=== PATIENT | female | born 1940 | race Caucasian/White ===

== ENCOUNTER → 2017-08-01 | Outpatient (CLI) | payer OTHER ==
[2017-08-01 17:37] LABS: ANION GAP 11.8 mmol/L (8-16); BLOOD UREA NITROGEN 14 mg/dL (7-26); BUN/CREATININE RATIO 21 (6-25); CALCIUM 8.2 mg/dL (8.4-10.2); CARBON DIOXIDE 24 mmol/L (22-29); CHLORIDE 104 mmol/L (98-107); CREATININE, SERUM 0.67 mg/dL (0.57-1.11); EST GLOMERULAR FILTRATION RATE > 60 ML/MIN (60-); GLUCOSE 113 mg/dL (74-118); POTASSIUM 3.8 mmol/L (3.5-5.1); SODIUM 136 mmol/L (136-145)
[2017-08-01 17:38] LABS: BASOPHILS % 0.3 % (0.0-1.0); EOSINOPHILS # (AUTO) 0.3 (0.0-0.4); EOSINOPHILS % 3.9 % (0.0-6.0); LYMPHOCYTES # (AUTO) 0.5 (1.0-3.2); LYMPHOCYTES % 7.3 % (18.0-39.1); MEAN CORPUSCULAR HEMOGLOBIN 31.2 pg (28-32); MEAN CORPUSCULAR HGB CONC 33.3 g/dL (31-35); MEAN CORPUSCULAR VOLUME 93.5 fL (81-99); MONOCYTES # (AUTO) 0.4 (0.2-0.8); MONOCYTES % 5.4 % (4.4-11.3); NEUTROPHILS # (AUTO) 5.9 (2.1-6.9); NEUTROPHILS % 81.6 % (38.7-80.0); PLATELET COUNT 478 x10e3/uL (140-360); RED BLOOD COUNT 3.21 x10e6/uL (3.6-5.1); RED CELL DISTRIBUTION WIDTH 13.8 % (11.7-14.4)
== END ==
LOC: NPA 11:30
PROVIDERS: ATTEND Internal Medicine
DX: Z02.89 Encounter for other administrative examinations (principal)
CPT/HCPCS: 36415; 80048; 85025

== ENCOUNTER → 2017-08-04 | Outpatient (CLI) | payer OTHER ==
[2017-08-04 16:37] LABS: BASOPHILS % 0.6 % (0.0-1.0); EOSINOPHILS # (AUTO) 0.1 (0.0-0.4); EOSINOPHILS % 1.8 % (0.0-6.0); HEMATOCRIT 34.3 % (34.2-44.1); HEMOGLOBIN 11.2 g/dL (12.0-16.0); LYMPHOCYTES % 29.5 % (18.0-39.1); MEAN CORPUSCULAR HEMOGLOBIN 30.9 pg (28-32); MEAN CORPUSCULAR HGB CONC 32.7 g/dL (31-35); MEAN CORPUSCULAR VOLUME 94.5 fL (81-99); MONOCYTES # (AUTO) 0.3 (0.2-0.8); MONOCYTES % 4.4 % (4.4-11.3); NEUTROPHILS # (AUTO) 4.2 (2.1-6.9); NEUTROPHILS % 62.6 % (38.7-80.0); PLATELET COUNT 728 x10e3/uL (140-360); RED BLOOD COUNT 3.63 x10e6/uL (3.6-5.1); RED CELL DISTRIBUTION WIDTH 14.1 % (11.7-14.4)
[2017-08-04 16:38] LABS: ANION GAP 14.7 mmol/L (8-16); BLOOD UREA NITROGEN 10 mg/dL (7-26); BUN/CREATININE RATIO 14 (6-25); CARBON DIOXIDE 23 mmol/L (22-29); CHLORIDE 104 mmol/L (98-107); CREATININE, SERUM 0.72 mg/dL (0.57-1.11); EST GLOMERULAR FILTRATION RATE > 60 ML/MIN (60-); GLUCOSE 121 mg/dL (74-118); POTASSIUM 3.7 mmol/L (3.5-5.1); SODIUM 138 mmol/L (136-145)
== END ==
LOC: NPA 15:00
PROVIDERS: ATTEND Internal Medicine
DX: Z02.89 Encounter for other administrative examinations (principal)
CPT/HCPCS: 36415; 80048; 85025

== ENCOUNTER 2019-03-28 16:26 | Inpatient (IN) | payer MEDICARE, OTHER ==
[~2019-03-28] VITALS: Ht 160 cm; Wt 75.5 kg
[2019-03-28] MEDS ORDERED: MORPHINE SULFATE 5 MG/ML VIAL IV ONE (16:45)
[2019-03-28] MEDS ORDERED: MORPHINE SULFATE 2 MG/ML SYR 1ML IV ONE (16:45)
[2019-03-28] MEDS ORDERED: ONDANSETRON HCL INJ 2MG/ML 2ML 2 MG/ML VIAL IV PRN ×2 (18:30→23:00)
[2019-03-28] MEDS: SODIUM CHLORIDE 0.9% 1000ML 1,000 ML IV SCH (18:42)
[2019-03-28] MEDS: MORPHINE SULFATE INJ 4 MG/ML INJ 1ML IV PRN (18:42)
--- NOTE | 2019-03-28 18:48 | Diagnostic Imaging Report ---
EXAMINATION: CHEST SINGLE (NOT PORTABLE) INDICATION: Fall. ^rx ^[id number] ^[id number] COMPARISON: None FINDINGS: TUBES and LINES: None. LUNGS: Lungs are well inflated. Lungs are clear. There is no evidence of pneumonia or pulmonary edema. PLEURA: No pleural effusion or pneumothorax. HEART AND MEDIASTINUM: The cardiomediastinal silhouette is unremarkable. There are atherosclerotic calcifications within the aorta. Moderate size hiatal hernia. BONES AND SOFT TISSUES: No acute osseous lesion. Soft tissues are unremarkable. UPPER ABDOMEN: No free air under the diaphragm. IMPRESSION: Moderate size hiatal hernia. Signed by: Dr. Umer Kaiser M.D. on 03/28/2019 6:45 PM
--- NOTE | 2019-03-28 18:52 | Diagnostic Imaging Report ---
Left femur 4 views and left hip with pelvis AP 4 HISTORY: Pain COMPARISON: None FINDINGS: Acute fracture of the femoral neck with mild superior displacement of the distal fracture fragment/femur. Status post right hip arthroplasty with prosthesis in adequate position. Extensive vascular calcifications. Degenerative changes of the lower lumbar spine and bilateral SI joints. Status post ORIF of a remote fracture of the distal femoral metadiaphysis with plate and screw construct which appear intact. Partially visualized total left hip arthroplasty. IMPRESSION: Acute fracture of the femoral neck with mild superior displacement of the distal fracture fragment/femur. Signed by: Dr. Umer Kaiser M.D. on 03/28/2019 6:49 PM
[2019-03-28 20:02] LABS: BASOPHILS # (AUTO) 0.1 (0.0-0.1); BASOPHILS % 0.3 % (0.0-1.0); EOSINOPHILS % 0.1 % (0.0-6.0); HEMATOCRIT 41.3 % (34.2-44.1); HEMOGLOBIN 14.1 g/dL (12.0-16.0); LYMPHOCYTES # (AUTO) 2.4 (1.0-3.2); LYMPHOCYTES % 12.7 % (18.0-39.1); MEAN CORPUSCULAR HEMOGLOBIN 30.8 pg (28-32); MEAN CORPUSCULAR HGB CONC 34.1 g/dL (31-35); MEAN CORPUSCULAR VOLUME 90.2 fL (81-99); MONOCYTES # (AUTO) 0.7 (0.2-0.8); MONOCYTES % 3.9 % (4.4-11.3); NEUTROPHILS # (AUTO) 15.3 (2.1-6.9); NEUTROPHILS % 82.5 % (38.7-80.0); PLATELET COUNT 353 x10e3/uL (140-360); RED BLOOD COUNT 4.58 x10e6/uL (3.6-5.1)
[2019-03-28 20:05] LABS: INR 0.92; PROTHROMBIN TIME 12.8 seconds (11.9-14.5)
[2019-03-28 20:15] LABS: ALANINE AMINOTRANSFERASE 18 IU/L (0-55); ALBUMIN 3.8 g/dL (3.5-5.0); ALBUMIN/GLOBULIN RATIO 1.3 (0.8-2.0); ALKALINE PHOSPHATASE 108 IU/L (40-150); ANION GAP 14.1 mmol/L (8-16); BLOOD UREA NITROGEN 16 mg/dL (7-26); BUN/CREATININE RATIO 17 (6-25); CALCIUM 9.4 mg/dL (8.4-10.2); CARBON DIOXIDE 22 mmol/L (22-29); CHLORIDE 106 mmol/L (98-107); CREATINE KINASE 125 IU/L (29-168); CREATININE, SERUM 0.93 mg/dL (0.57-1.11); EST GLOMERULAR FILTRATION RATE 58 ML/MIN (60-); GLUCOSE 115 mg/dL (74-118); POTASSIUM 4.1 mmol/L (3.5-5.1); SODIUM 138 mmol/L (136-145)
[2019-03-28] MEDS ORDERED: CEFTRIAXONE SOD 1 GM/NS 50 ML 50 ML IV ONE (20:30)
[2019-03-28 21:04] LABS: BILIRUBIN,URINE NEGATIVE (NEGATIVE); CLARITY,URINE CLEAR (CLEAR); COLOR,URINE YELLOW (YELLOW); KETONES,URINE NEGATIVE (NEGATIVE); LEUKOCYTE ESTERASE ,URINE NEGATIVE (NEGATIVE); NITRITE,URINE NEGATIVE (NEGATIVE); PROTEIN,URINE DIPSTICK NEGATIVE (NEGATIVE); URINE UROBILINOGEN 0.2 mg/dL (0.2 - 1)
[2019-03-28 21:16] LABS: EPITHELIAL CELLS,URINE RARE /LPF
[2019-03-28] MEDS ORDERED: HYDROCODONE/APAP 5MG-325MG TAB PO PRN (23:00)
[2019-03-28] MEDS ORDERED: MELATONIN 5 MG TABLET PO PRN (23:00)
[2019-03-28] MEDS ORDERED: ACETAMINOPHEN 325 MG TAB PO PRN (23:00)
--- NOTE | 2019-03-28 23:34 | NUR ---
PT ARRIVED BY STRETCHER TO ROOM 103. PT IS AAOX3, RR EVEN AND NON-LABORED, O2 BY NC AT 2L. PT TRANSFERRED BY SLIDE BOARD TO HOSPITAL BED. ORIENTED PT TO HOSPITAL BED, CALL LIGHT, PHONE, AND BED CONTROLS. LEFT PT LAYING SEMI FOWLERS IN BED, BED IN LOW LOCKED POSITION, SIDE RAILS UPX2, CALL LIGHT AND PHONE WITHIN REACH.
[2019-03-29] VITALS (9 sets, daily range): BP systolic 117–184; BP diastolic 60–84
[2019-03-29] MEDS: MORPHINE SULFATE INJ 4 MG/ML INJ 1ML IV PRN ×2 (00:43→08:46)
--- NOTE | 2019-03-29 00:45 | NUR ---
AFTER ADMINISTRATION OF MORPHINE, PT LOG ROLLED TO REMOVE SHEETS AND BEDDING FROM UNDER PATIENT. SLIDER WITH CHUCKS INSERTED UNDER PATIENT. LEFT PT LAYING SEMI FOWLERS IN BED, BED IN LOW LOCKED POSITION,SIDE RAILS UPX2, CALL LIGHT AND PHONE WITHIN REACH.
[2019-03-29] MEDS ORDERED: ADVIL200 M1 PO (03:13)
[2019-03-29] MEDS ORDERED: IRBESARTAN150 MG PO (03:13)
[2019-03-29] MEDS ORDERED: ATORVASTATIN CA20 MG PO (03:13)
[2019-03-29] MEDS ORDERED: BENADRYL25 M1 PO (03:13)
[2019-03-29] MEDS ORDERED: FLUOXETINE HCL20 MG PO (03:13)
[2019-03-29] MEDS ORDERED: MELATONIN3 MG PO (03:13)
[2019-03-29] MEDS ORDERED: LORATADINE10 MG PO (03:13)
[2019-03-29] MEDS: SODIUM CHLORIDE 0.9% 1000ML 1,000 ML IV SCH ×2 (03:38→17:20)
[2019-03-29 05:40] LABS: BASOPHILS # (AUTO) 0.1 (0.0-0.1); BASOPHILS % 0.5 % (0.0-1.0); EOSINOPHILS # (AUTO) 0.3 (0.0-0.4); EOSINOPHILS % 2.3 % (0.0-6.0); HEMATOCRIT 38.9 % (34.2-44.1); HEMOGLOBIN 12.8 g/dL (12.0-16.0); LYMPHOCYTES # (AUTO) 2.4 (1.0-3.2); LYMPHOCYTES % 19.2 % (18.0-39.1); MEAN CORPUSCULAR HEMOGLOBIN 30.3 pg (28-32); MEAN CORPUSCULAR HGB CONC 32.9 g/dL (31-35); MEAN CORPUSCULAR VOLUME 92.2 fL (81-99); MONOCYTES # (AUTO) 0.7 (0.2-0.8); MONOCYTES % 5.3 % (4.4-11.3); NEUTROPHILS # (AUTO) 8.9 (2.1-6.9); NEUTROPHILS % 72.4 % (38.7-80.0); PLATELET COUNT 317 x10e3/uL (140-360); RED BLOOD COUNT 4.22 x10e6/uL (3.6-5.1); RED CELL DISTRIBUTION WIDTH 13.1 % (11.7-14.4)
[2019-03-29 06:03] LABS: BLOOD UREA NITROGEN 15 mg/dL (7-26); BUN/CREATININE RATIO 17 (6-25); CALCIUM 8.5 mg/dL (8.4-10.2); CARBON DIOXIDE 24 mmol/L (22-29); CHLORIDE 108 mmol/L (98-107); CREATININE, SERUM 0.88 mg/dL (0.57-1.11); EST GLOMERULAR FILTRATION RATE > 60 ML/MIN (60-); GLUCOSE 108 mg/dL (74-118); SODIUM 137 mmol/L (136-145)
--- NOTE | 2019-03-29 06:13 | NUR ---
PAGED PLACED FOR MD LIMA CONCERNING CONSULTATION. WAITING FOR CALLBACK.
--- NOTE | 2019-03-29 06:16 | NUR ---
CALL PLACED FOR CONSULTATION TO [facility]. CALL WAS NOT ANSWERED, UNABLE TO LEAVE MESSAGE, WILL ATTEMPT LATER.
[2019-03-29] MEDS ORDERED: CEFAZOLIN SOD 1 GM VIAL IV ONE (08:15)
[2019-03-29] MEDS ORDERED: CEFAZOLIN SOD 2 GM/D5W 50ML 50 ML IV ONE (08:30)
[2019-03-29] MEDS ORDERED: MELATONIN 3 MG TAB PO PRN (08:30)
[2019-03-29] MEDS ORDERED: VANCOMYCIN HCL 1,000 MG ONE (11:02)
[2019-03-29] MEDS ORDERED: SODIUM CHLORIDE 0.9% 500ML 500 ML ONE (11:03)
[2019-03-29] MEDS ORDERED: BACITRACIN 50,000 UNIT VIAL ONE (11:03)
[2019-03-29] MEDS ORDERED: TRANEXAMIC ACID 1,000 MG/10 ML ML ONE (11:03)
--- NOTE | 2019-03-29 12:20 | NUR ---
Taken for procedure. NO s/s of acute distress noted.
[2019-03-29] MEDS ORDERED: ROPIVACAINE 246.25 MG, EPINEPHRINE HCL 1:1000 1ML 0.5 MG, CLONIDINE HCL 0.08 MG, KETORO... INJ ONE ×5 (12:30)
[2019-03-29] MEDS ORDERED: ONDANSETRON HCL 4 MG ORAL DISINTEGRATING TAB PO PRN (13:15)
--- NOTE | 2019-03-29 13:20 | History and Physical ---
CHIEF COMPLAINT: Mechanical fall with left femur fracture. HISTORY OF PRESENT ILLNESS: A 78-year-old female, who had a history of right hip fracture, status post repair several years ago, bilateral knee replacements, who presents to the emergency room after having a mechanical fall that occurred at home, found to have a left femur fracture. The patient reports that she was at home. She tried to grab something and she mechanically tripped and landed on her left femur/hip, and began to complain of severe pain. The patient was then brought in by EMS for further evaluation and management, and confirmed a left femur fracture. The patient was admitted for further evaluation and management. Orthopedics has been consulted. She is scheduled for surgery later today. The patient was seen and evaluated at bedside on the medical floor. She is currently doing well with no other complaints. She denies any history of cardiac disease. No reports of any chest pain or any palpitations. She has never seen a change management lead before in the past. She takes very minimal medications at home. No reports or any history of heart failure or any heart disease. No reports of any recent chest pain. REVIEW OF SYSTEMS: Pertinent positives: Mechanical fall with left hip pain, found to have a left femur fracture. Pertinent negatives: Denies any chest pain, palpitation, nausea, vomiting, diarrhea, dysuria, hematuria, frequency, urgency, lightheadedness, dizziness, abdominal pain, headaches, shortness of breath, cough, congestion, fever, or any other complaints. The rest of 14-point review of systems are reviewed with the patient and are negative. ALLERGIES: NO KNOWN DRUG ALLERGIES. HOME MEDICATIONS: 1. Benadryl 25 mg at bedtime for sleep. 2. Loratadine 10 mg daily. 3. Ibuprofen 200 mg every 6 hours as needed for pain. 4. Lipitor 20 mg daily. 5. Fluoxetine 20 mg daily. 6. Irbesartan 150 mg p.o. daily. 7. Melatonin p.r.n. for sleep. PAST MEDICAL HISTORY: Hypertension, depression, hyperlipidemia. PAST SURGICAL HISTORY: She had a right hip surgery in the past. She had bilateral knee replacements in the past. FAMILY HISTORY: Hypertension and diabetes. SOCIAL HISTORY: No drugs. No alcohol. Does not smoke. Good social support. She has children. PHYSICAL EXAMINATION: VITAL SIGNS: Temperature is 98.6, pulse 77, respiratory rate is 18, blood pressure 161/74, and pulse ox 96% on room air. GENERAL: Not in acute distress. Alert and oriented x3. Cooperative on examination. HEENT: Head; normocephalic, atraumatic. Eyes; pupils are equal, round, and reactive to light bilaterally. Extraocular movements intact bilaterally. Throat; no evidence of erythema or exudates in the posterior pharynx. Has poor dentition. NECK: Supple. Good range of motion. PULMONARY: Clear to auscultation bilaterally. No wheezing, no rales, no rhonchi, no crackles appreciated. CARDIOVASCULAR: Positive S1 and S2. No murmurs, rubs, or gallops appreciated. ABDOMEN: Soft, nondistended, and nontender to palpation. Bowel sounds present. MUSCULOSKELETAL: Strength is 5/5 throughout. No evidence of any muscle deficits on examination. No weakness appreciated. NEUROLOGIC: Cranial nerve II through XII grossly intact. No evidence of any neurological deficits on exam. SKIN: Intact. Warm to touch. Good cap refill. PSYCHIATRIC: Normal affect and mood. EXTREMITIES: No edema. Good range of motion throughout. LABORATORY FINDINGS: Show white count 12.3, hemoglobin 12.8, hematocrit 38.9, platelets of 317. Coagulation; PT 12, INR 0.92. Chemistry; sodium 137, potassium 4, chloride 108, bicarb 24, anion gap of 9, BUN 15, creatinine 0.88, glucose is 108, calcium is 8.5. LFTs were normal. Troponins were negative. CK is 125, albumin is 3.8. Urinalysis was negative. MICROBIOLOGY: Urine cultures, no growth. IMAGING STUDIES: Hip x-ray shows acute fracture of the femoral neck with superior displacement of the distal fracture fragment in the left femur. Femur x-ray, acute fracture of the left femoral neck. Chest x-ray moderate-sized hiatal hernia. Otherwise, no other findings. IMPRESSION: 1. Mechanical fall, now with left femur fracture. 2. Hypertension. 3. History of depression. 4. Hyperlipidemia. PLAN: At this time, Orthopedics is consulted. She is n.p.o. and she is scheduled to have pinning of her left femur later today. She denies any history of cardiac disease. Never seen a change management lead. No reports of any chest pain or any palpitations. Denies any history of arrhythmias in the past. Continue with pain control for now. She will get PT and OT post surgery. Physical medicine rehab has been consulted for inpatient rehabilitation. We are going to resume same home medications for now. Get a.m. labs. Start on anticoagulation after surgery, as she is scheduled for surgery later today. We will go ahead and put her on SCDs for now. Otherwise, we will continue with same plan of care and monitor very closely. MD JASWANT Douglas/JULIANA /[id number]
[2019-03-29] MEDS ORDERED: ACETAMINOPHEN 1000 MG/100 ML 100 ML IV ONE (13:56)
[2019-03-29] MEDS ORDERED: ONDANSETRON HCL INJ 2MG/ML 2ML 2 MG/ML VIAL ONE (14:14)
[2019-03-29] MEDS ORDERED: ROCURONIUM BROMIDE 10 MG/ML 5ML VIAL ONE (14:14)
[2019-03-29] MEDS ORDERED: DEXAMETHASONE SOD PHOS INJ 4 MG/ML VIAL ONE (14:14)
[2019-03-29] MEDS ORDERED: PROPOFOL IV EMULSION 10 MG/ML 20 ML VIAL ONE (14:14)
[2019-03-29] MEDS ORDERED: ACETAMINOPHEN 1000 MG/100 ML IV ONE (14:14)
[2019-03-29] MEDS ORDERED: SEVOFLURANE INHAL SOLN 250 ML PEN BTL ONE (14:14)
[2019-03-29] MEDS ORDERED: LIDOCAINE HCL 2% LOCAL INJ 5 ML SDV VIAL INJ ONE (14:14)
[2019-03-29] MEDS ORDERED: DIPHENHYDRAMINE HCL INJ 50 MG/ML VIAL IM/IV PRN (14:30)
[2019-03-29] MEDS ORDERED: PROMETHAZINE HCL (IM) 25 MG/ML VIAL IM PRN (14:30)
[2019-03-29] MEDS ORDERED: ONDANSETRON HCL INJ 2MG/ML 2ML 2 MG/ML VIAL IV PRN (14:30)
[2019-03-29] MEDS ORDERED: ACETAMINOPHEN 650 MG SUPP PR PRN (14:30)
--- NOTE | 2019-03-29 14:46 | Consultation ---
DATE OF CONSULTATION: Pulmonary Critical Care Consultation HISTORY OF PRESENT ILLNESS: The patient is a 78-year-old woman. She previously followed in my office for insomnia and dyspnea. She is currently taking melatonin at night. She is not having any further cough or dyspnea. Apparently, she slipped and fell yesterday. She suffered a fracture to the left hip and came to the ER. She was evaluated by Orthopedics and it is felt to need a total hip replacement on the left side. PAST SURGICAL HISTORY: 1. Status post right total hip. 2. Status post knee surgery. PAST MEDICAL HISTORY: 1. Hypertension. 2. Allergies. 3. Insomnia. 4. Osteoarthritis. SOCIAL HISTORY: The patient is not smoking at this time. She is not an active drinker. FAMILY HISTORY: Family history is noncontributory. ALLERGIES: NO KNOWN DRUG ALLERGIES. REVIEW OF SYSTEMS: The patient is afebrile. She has no headache. She is not complaining of chest pain. She has no wheezing or dyspnea. She has no abdominal pain. She does have some leg pain on the left side. She has no neurological complaints. PHYSICAL EXAMINATION: VITAL SIGNS: The blood pressure is 161/74 and the saturation is 96% on 2 L. HEENT: Shows no facial swelling or erythema. NECK: Shows no submandibular, cervical, or supraclavicular adenopathy. CARDIAC: Reveals regular rate and rhythm with normal S1 and S2. There are no murmurs or rubs. LUNGS: Auscultation of lungs reveals prolonged expiratory phase bilaterally. There is no wheezing. ABDOMEN: Soft and nontender. There is no rebound or guarding. EXTREMITIES: Examination of extremities shows some shortening and external rotation of the left leg. There are no focal neurological abnormalities. LABORATORY DATA: The sodium is 137 and the BUN to creatinine ratio is 15 to 0.88. The white blood cell count is 12.3 and hemoglobin is 12.8. The platelet count is 317. RADIOGRAPHIC DATA: There is a moderate size hiatal hernia. There is no acute disease in the lungs. IMPRESSION: 1. Remote history of dyspnea that has resolved. 2. Insomnia. 3. Hip fracture. 4. Hypertension. PLAN: 1. The patient will receive melatonin at night and Ambien p.r.n. if needed. 2. The patient is scheduled for surgery today. 3. Physical Medicine Rehabilitation has been consulted. 4. Continue current antihypertensive regimen. MD MARISSA Robertson/JULIANA /[id number]
--- NOTE | 2019-03-29 15:49 | Diagnostic Imaging Report ---
Pelvis, 2 views. History: Post op. Findings: Status post total left hip arthroplasty with prosthetic components in anatomic alignment. Overlying post-surgical air and skin gila are present. Prior right hip replacement is also noted. IMPRESSION: Status post left hip replacement in anatomic position. Signed by: Dequan Jacinto on 03/29/2019 3:46 PM
--- NOTE | 2019-03-29 16:06 | NUR ---
Back from procedure. No s/s of acute distress noted. Aquacel dressing to left hip clean, dry, and intact.
[2019-03-29] MEDS ORDERED: CELECOXIB 100 MG CAP PO SCH (17:00)
[2019-03-29] MEDS: ASPIRIN 325 MG TAB PO SCH (17:20)
[2019-03-29] MEDS: ACETAMINOPHEN 1000 MG/100 ML IV SCH (17:20)
[2019-03-29] MEDS: IRBESARTAN 150 MG TAB PO SCH (17:20)
[2019-03-29] MEDS: FLUOXETINE HCL 20 MG CAP PO SCH (17:20)
[2019-03-29] MEDS: CELECOXIB 200 MG CAP PO SCH (17:20)
--- NOTE | 2019-03-29 18:57 | NUR ---
WALKING ROUNDS PERFORMED, RECEIVED PT LAYING SEMI FOWLERS IN BED, AAOX3, RR EVEN AND NON-LABORED, ON ROOM AIR. NO S/SX OF DISTRESS NOTED. DRESSING TO (L) HIP NOTED TO BE CDI. LEFT PT LAYING SEMI FOWLERS IN BED, BED IN LOW LOCKED POSITION, SIDE RAILS UPX2, CALL LIGHT AND PHONE WITHIN REACH.
--- NOTE | 2019-03-29 19:17 | NUR ---
Report given to oncoming nurse of patient's status. No s/s of acute distress noted. Right AC IV infiltrated. Arm elevated. Started Left FA 20G. Left hip dressing clean, dry, and intact. Side rails upx2, call light within reach.
[2019-03-29] MEDS ORDERED: FENTANYL CITRATE/PF 100MCG/2 ML INJ ONE (19:33)
[2019-03-29] MEDS ORDERED: MIDAZOLAM HCL 2 MG/2 ML VIAL ONE (19:33)
[2019-03-29] MEDS ORDERED: MORPHINE SULFATE INJ 10 MG/ML ONE (19:33)
[2019-03-29] MEDS ORDERED: ZOLPIDEM TARTRATE 5 MG TAB PO PRN (21:00)
--- NOTE | 2019-03-29 21:27 | Operative Report ---
DATE OF PROCEDURE: 03/29/2019 SURGEON: Marty Watson MD REGRADER: Rohit Marsh, certified PA. PREOPERATIVE DIAGNOSIS: Left femoral neck fracture. POSTOPERATIVE DIAGNOSIS: Left femoral neck fracture. PROCEDURE: Left total hip arthroplasty. INDICATIONS: The patient is a 78-year-old lady, who was independently ambulatory. She fell and sustained a femoral neck fracture. The findings and options have been discussed. We plan on performing a left total hip replacement. The risks and benefits were explained. She states she understands and wishes to proceed. DESCRIPTION OF PROCEDURE: The patient was brought to the operating room and placed under general anesthetic. She was positioned in the right lateral decubitus position. Her left hip was prepped and draped in a sterile manner. A preoperative time-out was performed. A posterior approach was made to the left hip. Hemostasis was obtained with electrocautery. The abductor insertion on the greater trochanter was noted to be attenuated and partially incompetent. The posterior capsule was released. The hip was brought up into flexion and internal rotation. An oscillating saw was used to resect the remainder of the femoral neck. Acetabular retractors were placed. The femoral head was removed. The labral remnants were removed. The socket was sequentially reamed up to 51 mm. This accomplished bleeding hemispherical cancellous bone. A Louis [employer]omet 52 mm outer diameter OsseoTi socket was impacted into place. Fixation was augmented with two 25 mm cancellous screws placed into the ilium. A highly cross-linked polyethylene liner with a 36 mm inner diameter was then seated into place. Care was taken to make sure that there was no evidence of soft tissue interposition. The hip was thoroughly irrigated on multiple occasions during this portion of the case. Attention was directed towards the proximal femur. A box cutting osteotome was used to establish entry to the femoral canal. The Taperloc broaches were impacted. A size 15 stem was necessary to have good canal fill and rotational stability. Trial reductions were performed. A standard 36 mm head provided appropriate soft tissue balancing, scientologist of limb length and stability to a full arc of motion. The trial implants were removed. The prosthesis was seated and a 36 mm ceramic head with a standard trunnion was impacted onto the stem. A final reduction was performed. The hip was further irrigated. A 100 mL premixed pericapsular YADI injection was placed into the surrounding soft tissue. The posterior capsule was repaired with #2 Ethibond. A 500 mg of vancomycin powder were sprinkled into the deep aspect of the wound. The gluteal fascia was closed with interrupted #2 Ethibond. The skin was closed with subcuticular Vicryl and gila. A sterile Aquacel bandage was applied. The patient was returned to the supine position, extubated, and transported to the recovery room. Estimated blood loss was 150 mL and all needle and sponge counts were correct. Marty Watson MD DR/JULIANA /[id number]
[2019-03-29] MEDS: CEFAZOLIN SOD 1 GM/NS 50ML 50 ML IV SCH (22:15)
[2019-03-29] MEDS: ATORVASTATIN 20 MG TAB PO SCH (22:15)
[2019-03-29] MEDS: ENOXAPARIN SOD INJ 40 MG/0.4 ML SYR SC SCH (22:15)
--- NOTE | 2019-03-29 23:58 | Consultation ---
DATE OF CONSULTATION: 03/29/2019 I would like to thank Dr. Crabtree for asking me to see Ms. Martinez in consultation. REASON FOR CONSULTATION: Status post left femur fracture secondary to fall with left hip arthroplasty. HISTORY: 78-year-old female, who was at home putting on a new mattress topper when she got her foot caught on a comforter and she fell fracturing her left hip. She underwent workup and was admitted to the hospital, underwent workup and today underwent hemiarthroplasty with Dr. Dietz. I am being asked to evaluate for rehab needs. PAST MEDICAL HISTORY: Includes hypertension, depression, and hyperlipidemia. The patient has "bad feet." PAST SURGICAL HISTORY: Include to have previous right hip surgery in the past, bilateral knee replacements. ALLERGIES: NO KNOWN DRUG ALLERGIES. REVIEW OF SYSTEMS: 11-point review of systems, the patient basically is a negative except for the above findings. According to her friend, her feet are bad and she has difficulty mobilizing, not really falling, but she does have a walker, although she may not use it all the time. SOCIAL HISTORY: Lives by herself in a one-story home. Again, has a walker which she probably could use or should use, but was not doing so at this time. PHYSICAL EXAMINATION: GENERAL: The patient is awake and alert. No apparent distress at this time. Follows commands. She is on O2 via nasal cannula. She is awake and alert. Does not appear to be in distress. Not very much pain. HEENT: Eyes gaze conjugate. Oral, tongue is midline. NECK: Supple. She just had surgery. NEUROLOGIC: Sensory, denies any new onset numbness, tingling in the hands, feet, or face. Manual muscle testing 4-/5 strength in the upper extremities again. She has had surgery and she has a little bit loopy, but actually doing pretty well in the lower extremity. She can wiggle her ankles up and down within full range of motion. I did not test her hip for any at this time. She literally had surgery not too long ago. Therapy has just seen her. LABORATORY DATA: White cell count of 12.3, hemoglobin 12.8, hematocrit 38.9, and platelets of 317. Sodium is 137, potassium 4.0, BUN of 15, and creatinine 0.88. Chest x-ray, moderate size hiatal hernia. IMPRESSION: 1. Right hip fracture secondary to fall with hemiarthroplasty. 2. Hypertension. 3. The patient with a previous impaired gait immobility before this. 4. Hypertension. 5. History of depression. 6. Hyperlipidemia. PLAN: Initiate therapy and see how she does and if indicated, check with insurance for inpatient rehab. We will follow along with you. Thank you once again for allowing me to participate in care of this pleasant but unfortunate patient. Krystian Zambrano DO RPL/MODL /[id number]
[2019-03-30] VITALS (10 sets, daily range): BP systolic 96–185; BP diastolic 56–98
[2019-03-30] MEDS: SODIUM CHLORIDE 0.9% 1000ML 1,000 ML IV SCH ×2 (00:30→09:00)
--- NOTE | 2019-03-30 02:14 | Consultation ---
DATE OF CONSULTATION: 03/29/2019 CHIEF COMPLAINT: Left hip pain. HISTORY OF PRESENT ILLNESS: This patient is a pleasant 78-year-old female with a significant history of osteoporosis, who suffered a fall in her home. She states that she had pain in her left hip and was unable to get up and bear weight on the left leg. She was brought into the [facility] Emergency Room, where she was noted to have a left hip fracture and thus Orthopedics was consulted. The patient states that prior to the fall that she ambulated occasionally with the assistance of a cane. She states that she lives alone and is independent in her activities of daily living. PAST MEDICAL HISTORY: Hypertension and osteoporosis. PAST SURGICAL HISTORY: Bilateral knee replacements, right hip hemiarthroplasty, and ORIF left distal femur. SOCIAL HISTORY: The patient is and lives alone in a downstairs apartment. She is a retired school nurse. She denies smoking or drinking. ALLERGIES: NO KNOWN DRUG ALLERGIES. MEDICATIONS: See MAR. REVIEW OF SYSTEMS: All negative other than left hip pain. PHYSICAL EXAMINATION: GENERAL: This is a well-nourished, healthy-appearing, elderly female. She is in no apparent distress. She is awake, alert, and oriented appropriately. She is lying supine in bed. EXTREMITIES: Her left lower extremity is slightly shortened and externally rotated. There is no bruising or lesions noted in the left upper thigh. She has pain with any attempted passive range of motion of the left hip. She has well-healed extensile scars over both knees and a lateral extensile scar over the left distal femur. Distal motor exam at the left foot and ankle are intact. Distal neurovascular exam is normal. IMAGING: X-rays of the left hip and pelvis were reviewed and show a displaced left femoral neck fracture. She has a well-fixed right hip hemiarthroplasty. X-rays of the left femur were also reviewed and show the same thing as well is a well-healed distal femur fracture with a well-fixed periarticular plate and a left total knee replacement. ASSESSMENT AND PLAN: This is a 78-year-old female with a left femoral neck fracture. The findings and options were discussed with the patient. I have recommended a left total hip replacement to restore her mobility and address the left femur fracture. The risks and benefits of the surgery were explained. The recovery was discussed. The option of going home with home therapy versus a going to a rehab facility was briefly discussed. She has lots of family support and has 2 daughters, who are nurses. The patient states she understands and wishes to proceed. We will get her on the schedule for a left total hip replacement at lunch today. Thank you for the consultation. Dictated by Rohit Marsh PA-C MD GENE Engel/JULIANA /[id number]
[2019-03-30] MEDS: HYDRALAZINE HCL 20 MG/ML VIAL IV PRN (05:37)
[2019-03-30] MEDS: CEFAZOLIN SOD 1 GM/NS 50ML 50 ML IV SCH ×2 (05:37→14:00)
[2019-03-30 05:38] LABS: BASOPHILS % 0.2 % (0.0-1.0); EOSINOPHILS % 0.1 % (0.0-6.0); HEMOGLOBIN 11.7 g/dL (12.0-16.0); LYMPHOCYTES # (AUTO) 1.7 (1.0-3.2); LYMPHOCYTES % 13.8 % (18.0-39.1); MEAN CORPUSCULAR HEMOGLOBIN 30.5 pg (28-32); MEAN CORPUSCULAR HGB CONC 32.5 g/dL (31-35); MONOCYTES # (AUTO) 0.7 (0.2-0.8); MONOCYTES % 5.4 % (4.4-11.3); NEUTROPHILS % 80.2 % (38.7-80.0); PLATELET COUNT 220 x10e3/uL (140-360); RED BLOOD COUNT 3.83 x10e6/uL (3.6-5.1); RED CELL DISTRIBUTION WIDTH 13.3 % (11.7-14.4)
[2019-03-30 06:06] LABS: ANION GAP 12.2 mmol/L (8-16); BLOOD UREA NITROGEN 15 mg/dL (7-26); BUN/CREATININE RATIO 18 (6-25); CALCIUM 8.4 mg/dL (8.4-10.2); CARBON DIOXIDE 22 mmol/L (22-29); CHLORIDE 105 mmol/L (98-107); CREATININE, SERUM 0.84 mg/dL (0.57-1.11); EST GLOMERULAR FILTRATION RATE > 60 ML/MIN (60-); GLUCOSE 117 mg/dL (74-118); POTASSIUM 4.2 mmol/L (3.5-5.1); SODIUM 135 mmol/L (136-145)
[2019-03-30] MEDS: ACETAMINOPHEN 1000 MG/100 ML IV SCH ×3 (06:18→12:00)
[2019-03-30] MEDS: FLUOXETINE HCL 20 MG CAP PO SCH (09:00)
[2019-03-30] MEDS: ASPIRIN 325 MG TAB PO SCH ×2 (09:00→16:21)
[2019-03-30] MEDS: IRBESARTAN 150 MG TAB PO SCH (09:00)
[2019-03-30] MEDS: CELECOXIB 200 MG CAP PO SCH ×2 (09:00→16:21)
--- NOTE | 2019-03-30 09:07 | NUR ---
Patient alert and responsive, no resp distress, rounds by attending this morning and orders to d/c Dawn cath and stop IV fluids. Will monitor.
[2019-03-30] MEDS: KETOROLAC TROMETHAMINE 30 MG/ML VIAL IV PRN (09:22)
[2019-03-30] MEDS: DOCUSATE SODIUM 100 MG CAP PO PRN (09:23)
[2019-03-30] MEDS: HYDROCODONE/APAP 7.5MG-325MG 1 EA TAB PO PRN (09:23)
--- NOTE | 2019-03-30 09:23 | NUR ---
PT in to work with patient at this time, medicated for pain prior to therapy, will monitor.
--- NOTE | 2019-03-30 13:36 | Progress Note ---
DATE: 03/30/2019 SUBJECTIVE: The patient is status post left femur ORIF. She is currently doing well with no complaints. She is working with Physical Therapy, recommending [facility] facility placement. PHYSICAL EXAMINATION: VITAL SIGNS: Temperature is 96.8, pulse 72, respiratory rate is 20, blood pressure 147/71, pulse ox 95% on room air. GENERAL: Not in acute distress. Alert and oriented x3. Cooperative on examination. HEENT: Head; normocephalic, atraumatic. Eyes; pupils are equal, round, and reactive to light bilaterally. Extraocular movements intact bilaterally. Throat; no evidence of erythema or exudates in the posterior pharynx. Has poor dentition. NECK: Supple. Good range of motion. PULMONARY: Clear to auscultation bilaterally. No wheezing, no rales, no rhonchi, no crackles appreciated. CARDIOVASCULAR: Positive S1 and S2. No murmurs, rubs, or gallops appreciated. ABDOMEN: Soft, nondistended, and nontender to palpation. Bowel sounds present. MUSCULOSKELETAL: Strength is 5/5 throughout. No evidence of any muscle deficits on examination. No weakness appreciated. NEUROLOGIC: Cranial nerve II through XII grossly intact. No evidence of any neurological deficits on exam. SKIN: Intact. Warm to touch. Good cap refill. PSYCHIATRIC: Normal affect and mood. EXTREMITIES: No edema. Good range of motion throughout. LAB FINDINGS: Show white count 12.5, hemoglobin 11.7, hematocrit 36, platelets of 220. Coagulation; PT 12.8, INR 0.92. Chemistry, sodium 135, potassium 4.2, chloride 105, bicarb 22, anion gap of 12, BUN is 15, creatinine is 0.84, glucose is 117, calcium 8.4. Urine cultures no growth. IMPRESSION: 1. Left femur ORIF. 2. Hypertension. 3. History of depression. 4. Hyperlipidemia. PLAN: At this time, she worked with PT this morning and they are recommending [facility] facility which a Case Management order has been placed. We will continue with same plan of care. Resume same antihypertensive medications. Her labs show a hemoglobin of 11.7, which is stable. We will put Lovenox for DVT prophylaxis. Continue with same plan of care with no changes. Once accepted at [facility], she can be discharged, which will likely the patient will begin through the weekend and continue working with PT and OT. MD JASWANT Douglas/JULIANA /[id number]
--- NOTE | 2019-03-30 14:00 | NUR ---
Patient alert and responsive, voided x3 after removal of Dawn cath, will monitor.
[2019-03-30] MEDS ORDERED: ACETAMINOPHEN 1000 MG/100 ML IV PRN (14:30)
[2019-03-30] MEDS: HYDROCODONE/APAP 5MG-325MG TAB PO PRN ×2 (14:34→21:11)
--- NOTE | 2019-03-30 15:08 | NUR ---
Patient alert and responsive, OOB and ambulated 300 feet with 6 rest periods and some tachycardia and tachypnea but resolved. medicated for pain and sitting at bed side, will monitor.
--- NOTE | 2019-03-30 15:44 | NUR ---
WENT TO SPEAK WITH PT ABOUT SNF REFERRAL, SHE STATES ABSOLUTELY NOT, SHE STATES DR LMIA TOLD HER NOT TO GO TO A SNF AND THAT IS SHE IS IS GOING TO GO ANYWHERE SHE IS TO GO TO [facility]. SHE DID STATE SHE WAS ON MORPHINE SO SHE CALLED DAUGHTER POOL VERDUGO [phone] WHOM STATED THE SAME THING THAT DR LIMA STATES [facility] AND WILL NOT GO TO A SNF.
[2019-03-30] MEDS: ENOXAPARIN SOD INJ 40 MG/0.4 ML SYR SC SCH ×2 (16:21→16:22)
--- NOTE | 2019-03-30 17:11 | NUR ---
CHOICE LETTER FOR [facility] DONE AND ON [facility] FAXED TO [phone]; CONFIRMATION REC'D
--- NOTE | 2019-03-30 18:25 | NUR ---
Patient alert and responsive, OOB and ambulated in the room, tolerated meals, no N/V, pains well controlled. Will monitor
[2019-03-30] MEDS: ATORVASTATIN 20 MG TAB PO SCH (20:31)
[2019-03-31] VITALS (7 sets, daily range): BP systolic 140–174; BP diastolic 66–77
[2019-03-31] MEDS: KETOROLAC TROMETHAMINE 30 MG/ML VIAL IV PRN (08:28)
[2019-03-31] MEDS: DOCUSATE SODIUM 100 MG CAP PO PRN (08:28)
[2019-03-31] MEDS: HYDROCODONE/APAP 7.5MG-325MG 1 EA TAB PO PRN ×2 (08:28→14:08)
[2019-03-31] MEDS: ASPIRIN 325 MG TAB PO SCH ×2 (08:40→17:48)
[2019-03-31] MEDS: CELECOXIB 200 MG CAP PO SCH ×2 (08:41→17:48)
[2019-03-31] MEDS: FLUOXETINE HCL 20 MG CAP PO SCH (08:41)
[2019-03-31] MEDS: IRBESARTAN 150 MG TAB PO SCH (08:41)
--- NOTE | 2019-03-31 14:24 | NUR ---
DR SAUNDERS PUT IN ORDER FOR HOME EQUIPMENT, WE ARE WAITING ON [facility], UNABLE TO PROCESS ORDERS FOR HOME EQUIPMENT UNTIL FIND OUT IF PT IS ACCEPTED OR DENIED FOR REHAB INPATIENT. ALSO WHEN I SPOKE WITH THE DAUGHTERS ABOUT THE EQUIPMENT THEY STATE SHE HAD EVERYTHING APPROXIMATELY A YEAR AGO WITH HER HIP REPLACEMENT AND SHE THREW IT AWAY, ADVISED THAT INSURANCE WILL ONLY REPLACE EVERY 2 YEARS, ADVISED A WALKER IS 39.99 AT [facility] AND ONE FROM HERE IS $210.00. FAMILY STATES THEY WILL MOST LIKELY GO AND PURCHASE IF THEY NEED IT.
--- NOTE | 2019-03-31 16:32 | Progress Note ---
DATE: 03/31/2019 Medicine Progress Note SUBJECTIVE: The patient is doing well today with no complaints. She is actually ambulating very well, more than 350 feet according to the nursing staff. She may not even qualify for inpatient rehab. I asked her if she was interested in just going home, if she felt comfortable, but she was not able to tell me at this time. She wants to discuss this with her daughters first. PHYSICAL EXAMINATION: VITAL SIGNS: Temperature is 96.8, pulse 67, respiratory rate 19, blood pressure 152/67, and pulse ox 96% on room air. GENERAL: Not in acute distress. Alert and oriented x3. Cooperative on examination. HEENT: Head; normocephalic, atraumatic. Eyes; pupils are equal, round, and reactive to light bilaterally. Extraocular movements intact bilaterally. Throat; no evidence of erythema or exudates in the posterior pharynx. Has poor dentition. NECK: Supple. Good range of motion. PULMONARY: Clear to auscultation bilaterally. No wheezing, no rales, no rhonchi, no crackles appreciated. CARDIOVASCULAR: Positive S1 and S2. No murmurs, rubs, or gallops appreciated. ABDOMEN: Soft, nondistended, and nontender to palpation. Bowel sounds present. MUSCULOSKELETAL: Strength is 5/5 throughout. No evidence of any muscle deficits on examination. No weakness appreciated. NEUROLOGIC: Cranial nerve II through XII grossly intact. No evidence of any neurological deficits on exam. SKIN: Intact. Warm to touch. Good cap refill. PSYCHIATRIC: Normal affect and mood. EXTREMITIES: No edema. Good range of motion throughout. LABORATORY FINDINGS: Show hemoglobin was 11, hematocrit was 33, stable hemoglobin levels. Sodium 135, potassium 4.2, chloride 105, bicarb 22, anion gap of 12, BUN is 15, creatinine 0.84, calcium is 8.4. IMPRESSION: 1. Left femur open reduction and internal fixation. 2. Hypertension. 3. History of depression. 4. Hyperlipidemia. PLAN: At this time, the patient is working extremely well with physical therapy. She may likely be denied to inpatient rehab. Clinicals have been submitted already. I have offered the patient for an option of going home with outpatient PT and OT, since she is doing very well, but she wants to think about it, talk with her daughters. Hemoglobin is stable. Continue with Lovenox for DVT prophylaxis. Continue with same plan of care and monitor very closely. Once she makes her decision, as soon as she has been cleared by Ortho standpoint, we are going to discharge her. MD JASWANT Douglas/JULIANA /[id number]
[2019-03-31] MEDS: ENOXAPARIN SOD INJ 40 MG/0.4 ML SYR SC SCH ×2 (17:00→17:48)
[2019-03-31] MEDS: ATORVASTATIN 20 MG TAB PO SCH (21:00)
[2019-04-01] VITALS (7 sets, daily range): BP systolic 119–183; BP diastolic 57–88
[2019-04-01] MEDS: HYDRALAZINE HCL 20 MG/ML VIAL IV PRN (04:12)
[2019-04-01] MEDS: DOCUSATE SODIUM 100 MG CAP PO PRN (06:11)
[2019-04-01 06:50] LABS: BASOPHILS # (AUTO) 0.1 (0.0-0.1); BASOPHILS % 0.5 % (0.0-1.0); EOSINOPHILS # (AUTO) 0.7 (0.0-0.4); EOSINOPHILS % 6.4 % (0.0-6.0); HEMATOCRIT 35.1 % (34.2-44.1); HEMOGLOBIN 11.8 g/dL (12.0-16.0); LYMPHOCYTES # (AUTO) 2.9 (1.0-3.2); LYMPHOCYTES % 28.1 % (18.0-39.1); MEAN CORPUSCULAR HEMOGLOBIN 30.3 pg (28-32); MEAN CORPUSCULAR HGB CONC 33.6 g/dL (31-35); MONOCYTES # (AUTO) 0.6 (0.2-0.8); MONOCYTES % 5.6 % (4.4-11.3); NEUTROPHILS % 58.9 % (38.7-80.0); PLATELET COUNT 266 x10e3/uL (140-360); RED CELL DISTRIBUTION WIDTH 13.6 % (11.7-14.4)
[2019-04-01 07:07] LABS: ANION GAP 14.5 mmol/L (8-16); BLOOD UREA NITROGEN 17 mg/dL (7-26); BUN/CREATININE RATIO 22 (6-25); CALCIUM 8.7 mg/dL (8.4-10.2); CARBON DIOXIDE 19 mmol/L (22-29); CHLORIDE 110 mmol/L (98-107); CREATININE, SERUM 0.77 mg/dL (0.57-1.11); EST GLOMERULAR FILTRATION RATE > 60 ML/MIN (60-); GLUCOSE 99 mg/dL (74-118); POTASSIUM 3.5 mmol/L (3.5-5.1); SODIUM 140 mmol/L (136-145)
--- NOTE | 2019-04-01 07:25 | NUR ---
Received patient this morning, a/ox3, in bed, Dawn removed at 6:45am this morning, patient due to void, grimacing in pain and medicated at this time. Call light within reach, will monitor.
--- NOTE | 2019-04-01 07:40 | NUR ---
Received patient this morning, a/ox3, in bed and no resp distress, incision to left hip intact, call light within reach, hip precautions, will monitor.
[2019-04-01] MEDS ORDERED: POLYETHYLENE GLYCOL 3350 17 GM PACK PO ONE (07:45)
[2019-04-01] MEDS: HYDROCODONE/APAP 5MG-325MG TAB PO PRN ×2 (08:05→15:23)
[2019-04-01] MEDS: FLUOXETINE HCL 20 MG CAP PO SCH (09:26)
[2019-04-01] MEDS: CELECOXIB 200 MG CAP PO SCH ×2 (09:26→16:06)
[2019-04-01] MEDS: IRBESARTAN 150 MG TAB PO SCH (09:26)
[2019-04-01] MEDS: ASPIRIN 325 MG TAB PO SCH ×2 (09:26→16:06)
--- NOTE | 2019-04-01 16:27 | Progress Note ---
DATE: 04/01/2019 SUBJECTIVE: The patient reports having some nausea today. Denies any chest pain or any palpitations. She is actually doing much better. She is ambulating well. Family wants to wait to get to see if she can get accepted to inpatient rehab first. She may be able to be accepted that will be up to the insurance company. We did talk about equipment for home, which she had equipment about a year ago what the family threw them away and we discussed with them that they will likely have to purchase her own medical equipment. They verbalized understanding. PHYSICAL EXAMINATION: VITAL SIGNS: Temperature is 97, pulse 80, respiratory rate 22, blood pressure 146/70, pulse ox 98% on 2 L nasal cannula. GENERAL: Not in acute distress, alert, oriented x3. Cooperative on examination. HEENT: Has normocephalic and atraumatic. Eyes; pupils are equal, round, and reactive to light bilaterally. Extraocular movements intact bilaterally. NECK: Supple. Good range of motion. Throat; no evidence of erythema or exudates in the posterior pharynx. Has poor dentition. PULMONARY: Clear to auscultation bilaterally. No wheezing, no rales, no rhonchi, no crackles appreciated. CARDIAC: Positive S1, S2. No murmurs, rubs, or gallops appreciated. ABDOMEN: Soft, nondistended and nontender to palpation. Bowel sounds present. MUSCULOSKELETAL: Strength is 5/5 throughout. No evidence of any muscle deficits on examination. No weakness appreciated. NEUROLOGIC: Cranial nerve II through XII grossly intact. No evidence of any neurological deficits on exam. SKIN: Intact. Warm to touch. Good cap refill. PSYCHIATRIC: Normal affect and mood. EXTREMITIES: No edema. Good range of motion throughout. LABORATORY FINDINGS: Show white count 10.1, hemoglobin 11.8, hematocrit 35, and platelets of 266. Coagulation reviewed. PT 12.8, INR 0.92. Chemistry; sodium 140, potassium 3.5, chloride 110, bicarb is 19, anion gap 14, BUN 17, creatinine 0.77, glucose is 99, calcium is 8.7. Urinalysis negative. MICROBIOLOGY: Urine cultures were no growth to date. IMPRESSION: 1. Status post left femur open reduction and internal fixation. 2. Hypertension. 3. History of depression. 4. Hyperlipidemia. 5. Nausea. PLAN: At this time, patient is doing very well with physical therapy and ambulating very long distances. Family wants to wait inpatient rehab acceptance. We will continue to monitor that very closely. She is on Lovenox for DVT prophylaxis. Her labs are stable. Orthopedics cleared the patient for discharge when ready. In terms of medical equipment, family is to purchase their own as they had equipment about a year ago, but threw them away. Insurance will not pay for that. Once we get a further decision tomorrow, then we can determine if she ends up going home or to rehab. MD JASWANT Douglas/JULIANA /[id number]
--- NOTE | 2019-04-01 16:34 | NUR ---
Patient OOB and ambulated with PT, assisted to bathroom and had a shower, no BM yet, had miralax today and scheduled daily, no N/V reported, diet changed to regular per orders and as per patient's request, incision intact, will monitor. Call light within reach. Hip precautions in place.
[2019-04-01] MEDS: ENOXAPARIN SOD INJ 40 MG/0.4 ML SYR SC SCH (16:59)
[2019-04-01] MEDS: HYDROCODONE/APAP 7.5MG-325MG 1 EA TAB PO PRN (17:18)
--- NOTE | 2019-04-01 20:00 | NUR ---
INITIAL ASSESSMENT COMPLETE, VS STABLE, CALL LIGHT IN REACH, TRAPEZE ABOVE BED, PT WALKS ON A WALKER WHEN UP TO BATHROOM, DRESSING INTACT TO LEFT HIP, TOLD TO CALL FOR NEEDS
[2019-04-01] MEDS: ATORVASTATIN 20 MG TAB PO SCH (20:36)
[2019-04-02] VITALS (7 sets, daily range): BP systolic 129–178; BP diastolic 67–86
--- NOTE | 2019-04-02 08:52 | NUR ---
[facility], FAXED UPDATED PT NOTES
[2019-04-02] MEDS: POLYETHYLENE GLYCOL 3350 17 GM PACK PO SCH (09:29)
[2019-04-02] MEDS: ASPIRIN 325 MG TAB PO SCH ×2 (09:29→17:58)
[2019-04-02] MEDS: FLUOXETINE HCL 20 MG CAP PO SCH (09:29)
[2019-04-02] MEDS: IRBESARTAN 150 MG TAB PO SCH (09:29)
[2019-04-02] MEDS: CELECOXIB 200 MG CAP PO SCH ×2 (09:29→17:58)
--- NOTE | 2019-04-02 10:15 | NUR ---
ASSISTED PT TO GET OOB, RED RASH WARM TO TOUCH NOTED ON BACK , BUTTOCKS, AND BILAT LE, PT DENIES ANY PAINOR ITCHING,
--- NOTE | 2019-04-02 10:35 | NUR ---
AMBULATED IN HALLWAY WITH USE OF WALKER, PHYSICAL THERAPIST AT SIDE
--- NOTE | 2019-04-02 10:40 | NUR ---
MD SAUNDERS INTO SEE PT, DISCUSSED POC, AWARE OF RASH NOTED ON PT BACK SIDE AND LE'S, ORDERS NOTED
--- NOTE | 2019-04-02 10:57 | NUR ---
STARTED MOT TO PUT WITH PACKET FOR COMPLETION WHEN ADMITTED TO [facility].
[2019-04-02] MEDS: FAMOTIDINE 20 MG/2 ML VIAL IV SCH ×2 (11:55→21:23)
[2019-04-02] MEDS: METHYLPREDNISOLONE SOD SUCC 40 MG/ML VIAL 1ML IV SCH ×2 (11:55→21:23)
[2019-04-02] MEDS: DIPHENHYDRAMINE HCL 25 MG CAP PO PRN ×2 (11:55→21:22)
--- NOTE | 2019-04-02 12:18 | Progress Note ---
DATE: 04/02/2019 Medicine Progress Note SUBJECTIVE: The patient reports having a rash from the buttocks all the way to the lower extremities. I did evaluate that with the nurse present and she does have an extensive rash. The only medication that was given yesterday is Colace, MiraLAX and also [place]. I am not sure which medication truly caused this rash, it could also be from Betadine or chlorhexidine or whatever they use in the OR. At this time, she will get steroids, Pepcid and some Benadryl. She is otherwise doing well. She was ambulating down the sam with physical therapy. PHYSICAL EXAMINATION: VITAL SIGNS: Temperature is 99.5, pulse 78, respiratory rate is 20, blood pressure recorded at 178/86, I will go ahead and increase her antihypertensive medications and adjust them accordingly. Pulse ox 96% on room air. GENERAL: Not in acute distress. Alert and oriented x3. Cooperative on examination. HEENT: Head; normocephalic and atraumatic. Eyes; pupils are equal, round, and reactive to light bilaterally. Extraocular movements are intact bilaterally. Throat; no evidence of erythema or exudates in the posterior pharynx. Has poor dentition. NECK: Supple. Good range of motion. PULMONARY: Clear to auscultation bilaterally. No wheezing, no rales, no rhonchi, no crackles appreciated. CARDIOVASCULAR: Positive S1, S2. No murmurs, rubs, or gallops appreciated. ABDOMEN: Soft, nondistended and nontender to palpation. Bowel sounds present. MUSCULOSKELETAL: Strength is 5/5 throughout. No evidence of any muscle deficits on examination. No weakness appreciated. NEUROLOGIC: Cranial nerve 2 through 12 grossly intact. No evidence of any neurological deficits on exam. SKIN: She does have a rash from the buttocks all the way down to the bilateral lower extremities. I am not sure if this is an allergy. I did not see a rash in the back region, anterior chest wall or in the arms. LABORATORY DATA: Lab findings show white count 10, hemoglobin 11.8, hematocrit 35, and platelets of 266. Chemistries reviewed and stable. MICROBIOLOGY: None. IMAGING STUDIES: None. IMPRESSION: 1. Status post left femur open reduction and internal fixation. 2. Hypertension. 3. History of depression. 4. Hyperlipidemia. 5. Nausea, resolved. 6. Rash, unknown etiology. PLAN: At this time, I have talked to the nurse about the rash to see if we can figure out which medication caused this particular rash. At this time, we are not sure what caused it. It could have been from the iodine or Betadine or chlorhexidine that they would give in the OR, but it does look pretty significant. At this time, we will give her IV steroids, Benadryl as well as Pepcid. She will need to stay overnight now to monitor this rash before it gets worse. In terms of orthopedic, she has been cleared for discharge by their standpoint. She could potentially go home hopefully in the next 1 to 2 days if her rash is improved and I can discharge her on some more steroids. On any rate, she will also be monitored overnight and be monitored very closely. Get repeat labs in the morning. MD JASWANT Douglas/JULIANA /[id number]
[2019-04-02] MEDS ORDERED: HYDRALAZINE HCL 25 MG TAB PO SCH (17:00)
[2019-04-02] MEDS: ENOXAPARIN SOD INJ 40 MG/0.4 ML SYR SC SCH (17:58)
--- NOTE | 2019-04-02 18:36 | NUR ---
NO CHANGE IN RASH ON PT'S BACKSIDE, DAUGHTER STATES "THIS RASH HAPPENED LAST TIME SHE HAD SURGERY", PT TOLERATING PO, DENIES PAIN AT THIS TIME, CALL LIGHT WITHIN REACH
--- NOTE | 2019-04-02 19:00 | NUR ---
RECEIVED PATIENT IN BEDSIDE REPORT. PATIENT RESTING IN BED. NO PAIN REPORTED. NO S&S OF DISTRESS. RASH ON BACK UNCHANGED, BUT PATIENT REPORTS IT IS NOT BOTHERING HER AT THE MOMENT. REMINDED PATIENT OF HIP PRECAUTIONS, PATIENT VERBALIZED UNDERSTANDING. BED LOCKED IN LOWEST POSITION, SIDE RAILS UPX2, CALL LIGHT IN REACH.
[2019-04-02] MEDS ORDERED: FAMOTIDINE 20 MG/2 ML VIAL IV SCH (21:00)
[2019-04-02] MEDS ORDERED: METHYLPREDNISOLONE SOD SUCC 40 MG/ML VIAL 1ML IV SCH (21:00)
[2019-04-02] MEDS: HYDRALAZINE HCL 25 MG TAB PO SCH (21:23)
[2019-04-02] MEDS: ATORVASTATIN 20 MG TAB PO SCH (21:23)
[2019-04-03] VITALS (9 sets, daily range): BP systolic 152–188; BP diastolic 69–89
[2019-04-03] MEDS: HYDRALAZINE HCL 20 MG/ML VIAL IV PRN (05:21)
[2019-04-03 05:31] LABS: BASOPHILS % 0.3 % (0.0-1.0); HEMATOCRIT 32.2 % (34.2-44.1); HEMOGLOBIN 10.6 g/dL (12.0-16.0); LYMPHOCYTES # (AUTO) 1.6 (1.0-3.2); LYMPHOCYTES % 21.1 % (18.0-39.1); MEAN CORPUSCULAR HGB CONC 32.9 g/dL (31-35); MEAN CORPUSCULAR VOLUME 91.2 fL (81-99); MONOCYTES # (AUTO) 0.2 (0.2-0.8); MONOCYTES % 2.2 % (4.4-11.3); NEUTROPHILS # (AUTO) 5.6 (2.1-6.9); PLATELET COUNT 328 x10e3/uL (140-360); RED BLOOD COUNT 3.53 x10e6/uL (3.6-5.1); RED CELL DISTRIBUTION WIDTH 13.6 % (11.7-14.4)
[2019-04-03 05:51] LABS: ANION GAP 13.2 mmol/L (8-16); BLOOD UREA NITROGEN 18 mg/dL (7-26); BUN/CREATININE RATIO 21 (6-25); CALCIUM 8.7 mg/dL (8.4-10.2); CARBON DIOXIDE 20 mmol/L (22-29); CHLORIDE 110 mmol/L (98-107); CREATININE, SERUM 0.84 mg/dL (0.57-1.11); EST GLOMERULAR FILTRATION RATE > 60 ML/MIN (60-); GLUCOSE 138 mg/dL (74-118); POTASSIUM 4.2 mmol/L (3.5-5.1); SODIUM 139 mmol/L (136-145)
--- NOTE | 2019-04-03 07:15 | NUR ---
pt awake alert resp even and unlabored at this time no distress noted, pt able to make needs known call light in reach.
[2019-04-03] MEDS: ASPIRIN 325 MG TAB PO SCH ×2 (08:36→18:11)
[2019-04-03] MEDS: POLYETHYLENE GLYCOL 3350 17 GM PACK PO SCH (08:36)
[2019-04-03] MEDS: FLUOXETINE HCL 20 MG CAP PO SCH (08:36)
[2019-04-03] MEDS: METHYLPREDNISOLONE SOD SUCC 40 MG/ML VIAL 1ML IV SCH ×2 (08:36→22:45)
[2019-04-03] MEDS: CELECOXIB 200 MG CAP PO SCH ×2 (08:36→18:11)
[2019-04-03] MEDS: IRBESARTAN 150 MG TAB PO SCH (08:44)
[2019-04-03] MEDS: FAMOTIDINE 20 MG/2 ML VIAL IV SCH ×2 (08:44→22:45)
[2019-04-03] MEDS: HYDRALAZINE HCL 25 MG TAB PO SCH ×2 (08:44→21:50)
--- NOTE | 2019-04-03 10:15 | NUR ---
pt work with PT at this time. tolerated well.
--- NOTE | 2019-04-03 11:00 | NUR ---
CM CALLED BY DIANA AT INSURANCE [employer] PEER TO PEER BEING REQUESTED CM SPOKE WITH [facility] WHO STATES SHE HAS PEER TO PEER INFORMATION PEER TO PEER DUE BY 3PM TODAY AWAIT INSURANCE DECISION
--- NOTE | 2019-04-03 12:27 | Progress Note ---
DATE: 04/03/2019 Medicine Progress Note SUBJECTIVE: The patient is doing well. She is ambulating, but she has extensive rash from her buttocks all the way down to her lower legs. She denies any itching or scratching related to this. This happened after surgery, could be from the actual alcohol or whatever antiseptic whichever they used on the skin, which she may be allergic to, but I am not sure at this time. The patient denies any allergies. PHYSICAL EXAMINATION: VITAL SIGNS: Temperature is 96.0, pulse 72, respiratory rate is 20, blood pressure 160/69, pulse ox 96% on room air. GENERAL: Not in acute distress. Alert and oriented x3. Cooperative on examination. HEENT: Head; normocephalic and atraumatic. Eyes; pupils are equal, round, and reactive to light bilaterally. Extraocular movements are intact bilaterally. Throat; no evidence of erythema or exudates in the posterior pharynx. Has poor dentition. NECK: Supple. Good range of motion. PULMONARY: Clear to auscultation bilaterally. No wheezing, no rales, no rhonchi, no crackles appreciated. CARDIOVASCULAR: Positive S1, S2. No murmurs, rubs, or gallops appreciated. ABDOMEN: Soft, nondistended and nontender to palpation. Bowel sounds present. MUSCULOSKELETAL: Strength is 5/5 throughout. No evidence of any muscle deficits on examination. No weakness appreciated. NEUROLOGIC: Cranial nerve 2 through 12 grossly intact. No evidence of any neurological deficits on exam. SKIN: Intact. Warm to touch. Good cap refill. Rash in the buttock area down to the lower extremities, kind of blanchable erythematic in nature and warm to touch. PSYCHIATRIC: Normal affect and mood. EXTREMITIES: No edema. Good range of motion throughout. LABORATORY DATA: Lab findings show white count 7.3, hemoglobin 10.6, hematocrit 32, and platelets of 328. Chemistry reviewed and stable. IMPRESSION: 1. Status post left femur open reduction and internal fixation. 2. Hypertension. 3. History of depression. 4. Hyperlipidemia. 5. Nausea, resolved. 6. Rash in the buttocks and bilateral lower extremities, concern for underlying drug reaction. PLAN: At this time, currently we think that the rash in the buttock area and the lower extremities likely could be from underlying chlorhexidine, Betadine, because this is one the patient noticed it. She also notes last time she had surgery, this happened again. It sounds like it maybe the material or the chemical that they used to clean the skin before surgery. At this time, she is on steroids, Benadryl and Pepcid. I will go ahead and get an ID consult to come look at the rash. I do not have Dermatology at this facility. Orthopedics cleared the patient several days ago. From medicine standpoint, I want to make sure that the rash is contained before being discharged to home. Currently, we cannot find a medication that is causing this particular rash, but she is stable. She is doing well. There are no bullae. There is no clear vesicles, just a macular rash and blanchable. Otherwise, we will continue same plan of care and monitor very closely. MD JASWANT Douglas/JULIANA /[id number]
--- NOTE | 2019-04-03 17:32 | Consultation ---
DATE OF CONSULTATION: REASON FOR CONSULTATION: Skin rash, concerned about cellulitis. HISTORY OF PRESENT ILLNESS: Thank you so much for asking me to this patient. This patient, who is a very pleasant 78-year-old white female, who has history of right hip fracture, status post repair several years ago, bilateral total knee replacement, comes into the emergency room after having a mechanical fall that occurred at home, found to have left femur fracture, so the patient comes in, she was evaluated by Orthopedic, underwent surgery. The patient was admitted to [facility] on March 29, 2019. While she is here, she developed a rash on her back. The rash involves her whole back and goes all the way to bilateral lower extremities on the back. She denies any itching. She denies any pain. She said last time she had surgery, she had the same rash on her back, which resolved by itself. PAST MEDICAL HISTORY: Significant for osteoarthritis, hypercholesteremia, hypertension, difficulty sleeping, and depression. PAST SURGICAL HISTORY: As mentioned above, right hip surgery, bilateral total knee replacement. ALLERGIES: NKA. SOCIAL HISTORY: There is no smoking, drug abuse, or alcohol abuse. FAMILY HISTORY: Hypertension. REVIEW OF SYSTEMS: GENERAL: At the present time, she is doing very well. HEENT: Negative. PULMONARY: Negative. CARDIAC: Negative. : Negative. GI: Negative. SKIN: There is no rash except on the back as mentioned above. PHYSICAL EXAMINATION: GENERAL: She is currently alert, oriented, does not seem to be in acute distress. VITAL SIGNS: Stable, currently afebrile. HEENT: Normocephalic, not icteric. NECK: Supple. CHEST: Clear . HEART: S1, S2. ABDOMEN: Soft. Bowel sounds present. No tenderness. SKIN: In the back, there is an area of diffuse erythema, but there is no bolus, no eschar, no papules. EXTREMITIES: There is no pain. No tenderness. LABORATORY DATA: All reviewed. White count 7.35, hemoglobin 10. Her sodium 139, potassium 4.2, creatinine 0.8. Urine culture is negative. MEDICATION LIST: Reviewed . She is currently on Pepcid, Solu-Medrol, Celebrex, Prozac, Lipitor, and [place]. IMPRESSION: I think the patient have heat dermatitis, recommend ambulation. Local hydrocortisone can be discharged home from Infectious Disease point of view, no need for further workup or antibiotic. MD ANGE Guzmán/JULIANA /[id number]
[2019-04-03] MEDS: ENOXAPARIN SOD INJ 40 MG/0.4 ML SYR SC SCH (18:11)
--- NOTE | 2019-04-03 19:00 | NUR ---
RECEIVED PATIENT IN BEDSIDE SHIFT REPORT. PATIENT RESTING IN BED. NO PAIN REPORTED. NO S&S OF DISTRESS NOTED. BED LOCKED IN LOWEST POSITION, SIDE RAILS UPX2, CALL LIGHT IN REACH.
[2019-04-03] MEDS ORDERED: HYDROCORTISONE 1% CREAM 30 GM TUBE TOP PRN (19:45)
--- NOTE | 2019-04-03 19:45 | NUR ---
report given to oncoming nurse, pt stable at this time
--- NOTE | 2019-04-03 21:00 | NUR ---
R WRIST 20G IV INFILTRATED. REMOVED AT THIS TIME. CATHETER TIP INTACT. PRESSURE DRESSING APPLIED. NEW IV PLACED IN L FA 20G FOLLOWING ASEPTIC TECHNIQUES.
[2019-04-03] MEDS: ATORVASTATIN 20 MG TAB PO SCH (21:50)
[2019-04-04] VITALS (7 sets, daily range): BP systolic 104–183; BP diastolic 53–81
[2019-04-04] MEDS: POLYETHYLENE GLYCOL 3350 17 GM PACK PO SCH (08:09)
[2019-04-04] MEDS: HYDRALAZINE HCL 25 MG TAB PO SCH (08:09)
[2019-04-04] MEDS: FLUOXETINE HCL 20 MG CAP PO SCH (08:09)
[2019-04-04] MEDS: IRBESARTAN 150 MG TAB PO SCH (08:09)
[2019-04-04] MEDS: ASPIRIN 325 MG TAB PO SCH ×2 (08:09→16:19)
[2019-04-04] MEDS: CELECOXIB 200 MG CAP PO SCH ×2 (08:09→16:19)
[2019-04-04] MEDS ORDERED: PREDNISONE 20 MG TAB PO SCH (09:00)
--- NOTE | 2019-04-04 11:39 | NUR ---
SPOKE WITH MD SAUNDERS REGARDING HIGH BP OF 1200 NEW ORDERS FOR CATAPRESS TIMES 1 GIVEN
--- NOTE | 2019-04-04 12:14 | NUR ---
PT DENIED FOR ACUTE LTAC YESTERDAY PT NOTIFIED AND UNDERSTANDS STATES "IM READY TO GO HOME" PT HAS A R.W. IN THE ROOM TO TAKE HOME OFFERED HOME HEALTH BUT PT REFUSED STATING "I'VE HAD IT BEFORE AND DON'T NEED IT" PT AMBULATING >600 FEET WITH P.T. NO CONCERNS REGARDING DISCHARGE HOME Addendum: 04/04/19 at 1219 by Kimberlee Dorsey CM CORRECTION: PT DENIED FOR ACUTE REHAB ([facility])
[2019-04-04] MEDS ORDERED: CLONIDINE HCL 0.3 MG TAB PO ONE (12:30)
[2019-04-04] MEDS ORDERED: TYLENOL WITH C1 EACH PO (13:33)
[2019-04-04] MEDS ORDERED: PREDNISONE20 MG PO (13:33)
[2019-04-04] MEDS ORDERED: HYDRALAZINE HCL25 MG PO (13:34)
[2019-04-04] MEDS ORDERED: ASPIR 8181 MG PO (13:34)
--- NOTE | 2019-04-04 14:07 | NUR ---
DISCHARGE INSTRUCTIONS GIVEN AND PRESCRIPTIONS GIVEN PT VERBALIZED UNDERSTANDING. PT IS READY FOR DC PT WAITING ON RIDE TO HOME
[2019-04-04] MEDS: ENOXAPARIN SOD INJ 40 MG/0.4 ML SYR SC SCH (16:19)
[2019-04-04] MEDS ORDERED: FAMOTIDINE 20 MG TAB PO SCH (16:30)
--- NOTE | 2019-04-04 16:58 | NUR ---
PT OFF UNIT TO HOME AT THIS TIME
--- NOTE | 2019-04-04 18:44 | Discharge Summary ---
FINAL DISCHARGE DIAGNOSES: 1. Status post left femur open reduction and internal fixation. 2. Hypertension. 3. History of depression. 4. Hyperlipidemia. 5. Nausea, resolved. 6. Lower extremity rash including the buttocks, improved, likely to be from heat rash possibly. PHYSICAL EXAMINATION: VITAL SIGNS: Temperature is 97, pulse 79, respiratory rate is 16, blood pressure is 166/78, and pulse ox 95% on room air. LABORATORY FINDINGS: Show white count 7.3, hemoglobin 10.6, hematocrit is 32, and platelets of 328. Chemistry; sodium 139, potassium 4.2, chloride 110, bicarb 20, anion gap of 13, BUN is 18, creatinine is 0.84, glucose is 138, and calcium is 8.7. LFTs normal. Troponins are negative. Albumin 3.8. Urinalysis negative. MICROBIOLOGY: Urine culture negative. IMAGING STUDIES: Hip x-ray, acute fracture of the femoral neck with a mild superior displacement of the distal fracture fragment of the femur. Femur x-ray, acute fracture of the femoral neck with mild superior displacement of the distal fracture fragment femur. Chest x-ray, mild signs of hiatal hernia. Pelvic x-ray shows status post left hip replacement in anatomic position. HOSPITAL COURSE: A 78-year-old female, who came in after having a mechanical fall at home with imaging studies consistent with an acute fracture of the femoral neck of the left hip. The patient was admitted and Orthopedics was consulted. The patient underwent status post ORIF performed by Orthopedics. The patient did well postoperatively. She worked with physical therapy and occupational therapy. She requested inpatient rehab, but was denied. The patient was ambulating well down the sam with no issues by physical therapy. Actually since she improved tremendously, physical therapy recommended home with PT/OT. The patient developed a rash in the buttock area as well as in the lower extremities, could be presumed from according to the patient, may be from the alcohol that they used to clean the skin prior to surgery. The patient was started on some steroids, Benadryl, and Pepcid, which improved tremendously while here. I did get ID to come and evaluate it, felt to be maybe a heat rash, but had some hydrocortisone cream with much improvement. She denies any itching in the site. The patient is very eager to be discharged to home and was discharged on oral steroids, Pepcid as well as Benadryl. On discharge, the patient was doing well back to normal baseline with no other complaints. On the day of discharge, vital signs were stable, labs reviewed and stable. The patient is seen and evaluated, and examined thoroughly on the day of discharge. No other complaints. The patient verbalized understanding and agrees to plan of care to follow up accordingly as an outpatient with the primary care physician in 1 week and Orthopedics in 2 weeks' time for staple removal. She was advised to please follow up with PCP in the next week if the rash is not getting better, to please go to the local ER to have this further evaluated and manage. The rash on examination is more of a macular rash, but improved tremendously while here in the hospital today with steroids. There is no evidence of any vesicles or any bullae, and has improved tremendously and the patient was eager to being discharged to home, but I educated her about following up closely and if it gets worse, please go to the ER for further evaluation and management. The patient verbalized understanding. MEDICATIONS: See med reconciliation form. DISPOSITION: To home. CONDITION: Stable. DIET: Heart healthy. In the event of any worsening symptoms, the patient was advised to come back to the ED for further evaluation. Discharge summary took greater than 35 minutes. MD JASWANT Douglas/JULIANA /[id number]
== END 2019-04-04 16:58 | DRG 482 ==
LOC: ER 16:26 → ERHOLD 18:21 → MED/SURG 23:34 → OBSVTOIN 03-29 08:50
PROVIDERS: ADMIT Internal Medicine; ATTEND Internal Medicine
PROC: 0QQ Lower Bones, Repair (ICD-10-PCS; principal; 2019-03-29 09:00)
DX: S72.92XA Unspecified fracture of left femur, initial encounter for closed fracture (principal); I10 Essential (primary) hypertension; F32.9 Major depressive disorder, single episode, unspecified; L74.0 Miliaria rubra
CPT/HCPCS: 36415; 51700; 71045; 72170; 80048; 80053; 81001; 82550; 82553; 82948; 84484; 85014; 85018; 85025; 85610; 86850; 86900; 87086; 93005; 97139; 99284; G0378; J0171; J0360; J0690; J0696; J1100; J1200; J1650; J1885; J2001; J2250; J2270; J2405; J2795; J2920; J3010; J3370; J7030; J7040; J7512

== ENCOUNTER 2024-10-25 09:48 | Emergency (ER) | payer MEDICARE ==
[~2024-10-25] VITALS: Ht 170.2 cm; Wt 59.4 kg
[~2024-10-25 09:48] MED LIST: ADVIL200 M1 PO; ASPIR 8181 MG PO; ATORVASTATIN CA20 MG PO; BENADRYL25 M1 PO; FLUOXETINE HCL20 MG PO; HYDRALAZINE HCL25 MG PO; IRBESARTAN150 MG PO; LORATADINE10 MG PO; MELATONIN3 MG PO; PREDNISONE20 MG PO; TYLENOL WITH C1 EACH PO
[2024-10-25 09:52] VITALS: PULSE 77; RESP 20; TEMP 97.6
[2024-10-25 11:25] VITALS: BP 155/75; PULSE 73; RESP 20; O2SAT 96
== END 2024-10-25 11:19 | disposition home or self-care (01) ==
LOC: FSED 10:09 → MERGE 10:09 → FSED 11:19
DX: R53.1 Weakness (principal); E83.119 Hemochromatosis, unspecified; I10 Essential (primary) hypertension
CPT/HCPCS: 80053; 85025; 99284

== ENCOUNTER 2024-11-01 14:13 | Emergency (ER) | payer MEDICARE ==
[~2024-11-01] VITALS: Ht 170.2 cm; Wt 59.4 kg
[2024-11-01 15:25] VITALS: PULSE 64; RESP 17; TEMP 97.7; O2SAT 100
[2024-11-01 15:48] LABS: BASOPHILS # (AUTO) 0.1 (0.0-0.1); BASOPHILS % 0.7 % (0.0-1.0); EOSINOPHILS # (AUTO) 0.1 (0.0-0.4); EOSINOPHILS % 0.5 % (0.0-6.0); HEMATOCRIT 35.3 % (34.2-44.1); HEMOGLOBIN 12.3 g/dL (12.0-16.0); LYMPHOCYTES # (AUTO) 3.9 (1.0-3.2); LYMPHOCYTES % 42.8 % (18.0-39.1); MEAN CORPUSCULAR HEMOGLOBIN 31.8 pg (28-32); MEAN CORPUSCULAR HGB CONC 34.8 g/dL (31-35); MEAN CORPUSCULAR VOLUME 91.2 fL (81-99); MONOCYTES # (AUTO) 0.5 (0.2-0.8); MONOCYTES % 5.9 % (4.4-11.3); NEUTROPHILS # (AUTO) 4.6 (2.1-6.9); NEUTROPHILS % 49.9 % (38.7-80.0); PLATELET COUNT 335 x10e3/uL (140-360); RED BLOOD COUNT 3.87 x10e6/uL (3.6-5.1); WHITE BLOOD COUNT 9.16 x10e3/uL (4.8-10.8)
[2024-11-01 16:03] LABS: INR 0.85; PROTHROMBIN TIME 12.2 seconds (11.9-14.5)
[2024-11-01 16:04] LABS: PARTIAL THROMBOPLASTIN TIME 30.4 seconds (23.8-35.5)
[2024-11-01 16:12] LABS: ALBUMIN/GLOBULIN RATIO 1.4 (0.8-2.0); ANION GAP 16.7 mmol/L (8-16); BILIRUBIN,TOTAL 0.5 mg/dL (0.2-1.2); CALCIUM 9.2 mg/dL (8.4-10.2); CREATININE, SERUM 0.86 mg/dL (0.57-1.11); POTASSIUM 3.7 mmol/L (3.5-5.1); TOTAL PROTEIN 6.8 g/dL (6.5-8.1)
[2024-11-01 16:17] LABS: TROPONIN I 0.007 ng/mL (0-0.300)
[2024-11-01 16:38] LABS: BILIRUBIN,URINE NEGATIVE (NEGATIVE); CLARITY,URINE CLEAR (CLEAR); COLOR,URINE YELLOW (YELLOW); GLUCOSE, URINE NEGATIVE (NEGATIVE); KETONES,URINE NEGATIVE (NEGATIVE); LEUKOCYTE ESTERASE ,URINE TRACE (NEGATIVE); NITRITE,URINE NEGATIVE (NEGATIVE); PH,URINE 6 (5 - 7); PROTEIN,URINE DIPSTICK NEGATIVE (NEGATIVE); URINE UROBILINOGEN 0.2 mg/dL (0.2 - 1)
[2024-11-01 16:48] LABS: BACTERIA,URINE FEW /HPF; EPITHELIAL CELLS,URINE FEW /LPF; WBC,URINE (MAN) 0-5 /HPF (0-5)
[2024-11-01] MEDS: SODIUM CHLORIDE 0.9% 500ML 500 ML IV ONE (17:12)
== END 2024-11-01 17:22 | disposition home or self-care (01) ==
LOC: ER 15:37
DX: B02.29 Other postherpetic nervous system involvement (principal); E83.119 Hemochromatosis, unspecified; I10 Essential (primary) hypertension; M81.0 Age-related osteoporosis without current pathological fracture
CPT/HCPCS: 36415; 70450; 71045; 80053; 81001; 82550; 83735; 84484; 85025; 85610; 85730; 99284